=== PATIENT | male | born 1980 | race Caucasian/White ===

== ENCOUNTER 2017-08-17 12:59 | Emergency (ER) | payer OTHER ==
--- NOTE | 2017-08-17 15:07 | UC ---
Azeb Sen Gabriel, scribed for Mariama Azevedo MD on 08/17/17 at 1506 . Throat Pain/Nasal Sathya HPI - HPI Summary HPI Summary: This patient is a 37 year old M [place] [facility] [place] after finishing his antibiotics for his strep throat his symptoms have returned. Patient states that two weeks ago he was diagnosed with strep and took a 10 day course of amoxicillin and finished it 5 days ago. Pt states wasl feeling better, but 2 days ago started experiencing the sore throat again. The patient rates the pain 5/10 in severity. Patient reports low grade fever and bilateral ear pain. Multiple people in his family have had strep throat and he believes it is being passed back and forth. Pt did not change his toothbrush following abx. Pt denies other complaints. Patients medication reviewed during this visit. - History of Current Complaint Chief Complaint: UCGeneralIllness Stated Complaint: THROAT PAIN Time Seen by Provider: 08/17/17 14:51 Hx Obtained From: Patient Onset/Duration: Lasting Weeks - 2, Still Present Severity: Moderate Pain Intensity: 5 Pain Scale Used: 0-10 Numeric Associated Signs & Symptoms: Positive: Fever, Other - ear pain - Allergies/Home Medications Allergies/Adverse Reactions: Allergies Allergy/AdvReac Type Severity Reaction Status Date / Time No Known Allergies Allergy Verified 08/17/17 13:30 Home Medications: Home Medications Echinacea [Echinacea Extract] 62.5 mg PO DAILY 08/17/17 [History Confirmed 08/17] PMH/Surg Hx/FS Hx/Imm Hx Previously Healthy: Yes Other History Of: Negative For: Hepatitis B, Hepatitis C - Surgical History Surgical History: None - Family History Known Family History: Negative: Unknown, Cardiac Disease, Hypertension, Diabetes, Renal Disease, Respiratory Disease, Seizure Disorder - Social History Occupation: Unemployed Lives: With Family Alcohol Use: Rare Substance Use Type: None Smoking Status (MU): Never Smoked Tobacco - Immunization History Most Recent Tetanus Shot: out of date Review of Systems Constitutional: Fever ENT: Sore Throat, Ear Ache All Other Systems Reviewed And Are Negative: Yes Physical Exam Triage Information Reviewed: Yes Appearance: Well-Appearing, No Pain Distress, Well-Nourished Vital Signs: Initial Vital Signs Temp 99.5 F 08/17/17 13:27 Pulse 89 08/17/17 13:27 Resp 20 08/17/17 13:27 BP 99/64 08/17/17 13:27 Pulse Ox 98 08/17/17 13:27 Vital Signs Reviewed: Yes Eye Exam: Normal Eyes: Positive: Conjunctiva Clear ENT Exam: Normal ENT: Positive: Normal ENT inspection, Hearing grossly normal, Pharyngeal erythema, Other - no exudate, no erythema uvula midline Dental Exam: Normal Neck exam: Normal Neck: Positive: 1 Respiratory Exam: Normal Cardiovascular Exam: Normal Cardiovascular: Positive: RRR, No Murmur Abdominal Exam: Normal Abdomen Description: Positive: Nontender, No Organomegaly Bowel Sounds: Positive: Present Musculoskeletal Exam: Normal Musculoskeletal: Positive: Strength Intact Neurological Exam: Normal Neurological: Positive: Alert Psychological Exam: Normal Skin Exam: Normal Throat Pain/Nasal Course/Dx - Course Assessment/Plan: Pt recently treated for strep 10 days amox with improvement. pt with recurrent sore throat x 2 days. multiple family members with strep. PT did not change toothbrush. motrin/apap. secretion precautions. pt declined work note - Differential Dx/Diagnosis Provider Diagnoses: step pharyngitis Discharge - Discharge Plan Condition: Stable Disposition: HOME Prescriptions: Azithromycin 500 mg PO DAILY #7 tab Patient Education Materials: Strep Throat (ED) Referrals: No Primary Care Phys,NOPCP [Primary Care Provider] - Additional Instructions: - Okay to alternate ibuprofen (Advil, Motrin) and Tylenol every 3 hours for pain. Take with food. Do NOT take for more than 4-5 days - Okay to gargle and spit every 4 hours as needed for pain - Stay well hydrated - frequent sips of cold fluids will be soothing to your throat (popsicles, jello, ice cream, ice water). Avoid excess caffeine until your symptoms have resolved. - Do not share eating, drinking utensils. Throw out your toothbrush when your symptoms resolved -Throat infections are spread by oral secretions - do not share eating or drinking utensils until you symptoms are resolved. Clean items that may get your secretions such as cell phones, ipads, computer mouse, television remotes. Once you have been on antibiotics for 2 days, change your toothbrush and pillowcase. - It is recommended you take a pro-biotic or eat yogurt daily while taking this second antibiotic to try to decreased diarrheal illness - Contact your doctor to arrange a follow-up appointment as needed The documentation as recorded by the scribe, Bowie,Osman accurately reflects the service I personally performed and the decisions made by me, Mariama Azevedo MD.
== END 2017-08-17 15:24 | disposition home or self-care (01) ==
LOC: UCEAST 12:59
DX: J02.0 Streptococcal pharyngitis (principal)
CPT/HCPCS: 87651; 99202; G0463